=== PATIENT | female | born 1975 | race Caucasian/White ===

== ENCOUNTER 2017-05-08 14:07 | Emergency (ER) | payer OTHER ==
[~2017-05-08 14:07] MED LIST: ALBUTEROL17 GM INH; AMOXICILLIN PO; AMOXICILLIN875 MG PO; AUGMENTIN PO; BACTRIM DS TABL1 TA1 DOB; BACTRIM DS TABL1 TA1 PO; BENADRYL PO; BENADRYL25 MG PO; BENTYL20 M1 PO; BENTYL20 MG PO; BENZONATATE PO; CIPRO PO; DICLOFENAC PO; FIORICET 50-321 EACH PO; IBUPROFEN400 MG PO; LOMOTIL TABLET1 TAB PO; LORTAB 10-5001 EACH PO; LORTAB 5/500 TA1 TA2 PO; LORTAB PO; MOTRIN PO; NAPROSYN500 MG PO; NO MEDICATIONS; OMEPRAZOLE20 M1 PO; PERCOCET PO; PHENERGAN DM1 ML PO; PHENERGAN25 MG PO; PREDNISONE PO; RONDEC DM PO; SUDAFED60 MG PO; TYLENOL COLD SE1 TAB PO; VICODIN 5/1 TAB 5/50 PO; VICODIN 5/500 T1 TAB PO; ZOFRAN ODT4 MG PO
[2017-05-08 14:50] LABS: URINE SOURCE CLEAN CATCH
[2017-05-08 14:53] LABS: URINE APPEARANCE CLEAR; URINE BILIRUBIN NEG (NEG); URINE BLOOD NEG (NEG); URINE COLOR YELLOW; URINE GLUCOSE NEG (NORM); URINE KETONE NEG (NEG); URINE LEUKOCYTE ESTERASE 1+ (NEG); URINE NITRATE NEG (NEG); URINE PH 7.5 (5-8); URINE PROTEIN NEG (NEG); URINE UROBILINOGEN 0.2 MG/DL (NORM)
[2017-05-08 14:55] LABS: MICRO INDICATED? YES
[2017-05-08 15:07] LABS: CULTURE INDICATED? YES; URINE BACTERIA 1+ (NEG); URINE RBC 0-2 /[HPF] (0-2); URINE SQUAMOUS EPITHELIAL CELL MANY /[HPF]
== END 2017-05-08 15:45 | disposition home or self-care (01) ==
LOC: SED 14:07
PROVIDERS: Emergency Medicine
DX: B34.9 Viral infection, unspecified (principal); F17.200 Nicotine dependence, unspecified, uncomplicated
CPT/HCPCS: 81003; 84703; 87086; 87651; 99283